=== PATIENT | female | born 2000 ===

== ENCOUNTER 2019-12-07 13:00 | Emergency (ER) | payer OTHER, SELFPAY ==
[2019-12-07 13:01] VITALS: BP 103/61; PULSE 103; RESP 14; TEMP 36.4; O2SAT 100; BMI 21.1
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
[2019-12-07 13:38] VITALS: RESP 16; O2SAT 98
[2019-12-07 13:38] LABS: Basophils # 0.1 10^3/uL (0.0-0.1); Basophils % 0.4 %; Eosinophils % 0.1 %; Hematocrit 37.5 % (37.0-47.0); Hemoglobin 13.1 g/dL (11.5-15.3); Lymphocytes # 1.3 10^3/uL (1.5-6.5); Lymphocytes % 10.4 %; Mean Corpuscular HGB Conc 34.9 g/dL (30.0-36.0); Mean Corpuscular Hemoglobin 31.3 pg (28.0-34.0); Mean Corpuscular Volume 89.5 fL (81-99); Mean Platelet Volume 10.8 fL (7.4-10.4); Monocytes # 0.8 10^3/uL (0.2-0.9); Monocytes % 6.5 %; Neutrophils # 10.6 10^3/uL (1.8-8.0); Neutrophils % 82.3 %; Nucleated Red Blood Cells % 0 %; Platelet Count 293 10^3/cmm (130-400); Red Blood Count 4.19 10^6/uL (4.1-5.3); Red Cell Distribution Width 11.5 % (12.1-15.1); White Blood Count 12.9 10^3/uL (4.5-13.0)
[2019-12-07] MEDS: morphine 4 mg/mL SDV 1 mL IVP (13:38)
[2019-12-07] MEDS: ondansetron 2 mg/ML SDV 2 mL 4 MG IVP (13:38)
[2019-12-07 13:54] LABS: Alanine Aminotransferase 13 U/L (0-33); Albumin Level 4.6 g/dL (3.5-5.2); Alkaline Phosphatase 65 IU/L (35-105); Anion Gap 17.7 (5-19); Aspartate Amino Transferase 24 U/L (0-32); Blood Urea Nitrogen 8 mg/dL (6-20); Carbon Dioxide 22 mmol/L (22-29); Chloride 102 mmol/L (98-107); Globulin 3.1 g/dL (1.3-4.6); Glomerular Filtration Rate 106.7 mL/min (90-130); Glucose 90 mg/dL (65-115); Osmolality Calculated 281 mOsm/kg (285-295); Potassium 3.7 mmol/L (3.5-5.1); Sodium 138 mmol/L (136-145); Total Bilirubin 0.8 mg/dL (0.15-1.2); Total Protein 7.7 g/dL (6.6-8.7)
[2019-12-07] MEDS: sodium chloride 0.9% 1,000 ML 999 ML IV (14:00)
[2019-12-07 14:01] LABS: HCG, Serum Qual Negative (Negative)
[2019-12-07] MEDS: tetanus-dipt-pertussis 0.5 mL SDV IM (14:33)
[2019-12-07] MEDS: ketorolac 30 mg/mL INJ IVP (14:36)
[2019-12-07 14:51] LABS: Add Urine Microscopic? NO
[2019-12-07 14:56] LABS: Bilirubin Urine Neg (NEGATIVE); Blood Urine Neg (Negative); Glucose Urine UA Norm (Normal); HCG Qualitative Urine. Negative (Negative); Ketones Urine 2+ (Negative); Leukocyte Esterase Urine Negative (Negative); Nitrate Urine Negative (Negative); Protein Urine Neg (Negative); Sulfosalicylic Acid Urine Negative (Negative); Urine Appearance Clear (CLEAR); Urine Color Yellow (Yellow); Urobilinogen Urine Norm (Negative); pH Urine 8 (5-7)
[2019-12-07 15:13] VITALS: BP 98/60; PULSE 91; RESP 14; O2SAT 99
== END 2019-12-07 15:14 | disposition home or self-care (01) ==
PROVIDERS: Emergency Provider Family Medicine; PCP Pediatrics Adolescent Medicine
DX: S00.81XA Abrasion of other part of head, initial encounter (principal); M54.2 Cervicalgia; V89.2XXA Person injured in unspecified motor-vehicle accident, traffic, initial encounter; Z23 Encounter for immunization
CPT/HCPCS: 12345; 36415; 70450; 72040; 72072; 73562; 80053; 81003; 81025; 84703; 85025; 90471; 90715; 96361; 96374; 96375; 99283; 99284; J1885; J2270; J2405; J7030

== ENCOUNTER → 2020-03-29 10:49 | Outpatient (BNVA) | payer BC, SELFPAY | PROVIDERS: PCP Pediatrics Adolescent Medicine; Visit Provider Registered Nurse | DX: Z11.59 Encounter for screening for other viral diseases (principal) | CPT/HCPCS: 87635 ==